=== PATIENT | female | born 1990 | race Caucasian/White ===

== ENCOUNTER 2019-03-17 07:33 | Day surgery (SDC) | payer OTHER ==
--- OUTSIDE RECORDS SUMMARY | 2019-03-17 07:37 | XMS REPORT ---
:1990 Author Organization [employer] Care Team Providers Name Role Phone Laly Lou Provider Role Unavailable Allergies, Adverse Reactions, Alerts Substance Reaction Event Type N.K.D.A. Info Not Available Non Drug Allergy Problems Problem Type Condition Code Onset Dates Condition Status Problem Encounter for general adult medical Z00.01 Active examination with abnormal findings Problem Pilonidal cyst L05.91 Active Assessment Encounter for general adult medical Z00.01 Active examination with abnormal findings Assessment Pilonidal cyst L05.91 Active Medications No Known Medications Results No Known Results Summary Purpose [employer] Submission
[2019-03-17] MEDS ORDERED: Ringers Lactate 1,000 ML IV ONE (07:57)
[2019-03-17] MEDS ORDERED: MIDAZOLAM HCL 2 MG/2 ML INJ ONE (08:16)
[2019-03-17] MEDS ORDERED: LIDOCAINE 2% MPF 5 ML VIAL ONE (08:16)
[2019-03-17] MEDS ORDERED: propofoL 200 MG/20 ML VIAL IV ONE (08:16)
[2019-03-17] MEDS ORDERED: FENTANYL CITR 100 MCG/2 ML ONE (08:16)
[2019-03-17] MEDS ORDERED: CEFAZOLIN/SWI 1gm 1 GM/10 ML SYR ONE (08:18)
[2019-03-17] MEDS ORDERED: ONDANSETRON 4 MG/2 ML VIAL ONE (08:18)
[2019-03-17] MEDS ORDERED: METHYLENE BLUE 0.5% 10 ML AMP ONE (08:20)
[2019-03-17] MEDS ORDERED: BUPIVACA 0.5%/EPI 0.0005%/PF 30 ML VIAL ONE (08:20)
[2019-03-17] MEDS ORDERED: NS 0.9% VIAL 10 ML ONE (08:49)
--- NOTE | 2019-03-17 09:03 | P.OP ---
Preoperative diagnosis: Recurrent Pilonidal Cyst Postoperative diagnosis: Recurrent Pilonidal Cyst Primary procedure: Wide Local Excisional Debridement of Recurrent Pilonidal Cyst Anesthesia: GETA + Local Estimated blood loss: <5cc Specimen: Debridement Tissue Complications: None Implants: Amniofill 1 gram Transferred to: Recovery Room Condition: Good
[2019-03-17 09:19] VITALS: O2SAT 100
[2019-03-17] MEDS ORDERED: ACETAMINOPHEN 500 MG TAB ONE (09:52)
[2019-03-17 10:17] VITALS: BP 130/81; TEMP 96.9
--- NOTE | 2019-03-17 18:56 | OP ---
Date of Procedure: 03/17/2019 Surgeon: Andre Potter MD, Preoperative Diagnosis: Recurrent pilonidal cyst. Postoperative Diagnosis: Recurrent pilonidal cyst. Procedure Performed: Excisional debridement of recurrent pilonidal cyst. Application of placental graft tissue. Anesthesia: General endotracheal plus local with 0.5% Marcaine with epinephrine. Estimated Blood Loss: 5 mL. Specimen: Debridement tissue. Complications: None. Implants: AmnioFill 1 g by [employer]. Disposition: Transferred to recovery room in good condition. Procedure In Detail: After informed consent obtained, patient was brought to the operating room, prepped and draped in sterile fashion. After adequate anesthesia was achieved, I anesthetized the area around the pilonidal cyst near the superior aspect of the colton cleft. I appropriately anesthetized the area and made an elliptical incision for approximately 3 cm x 2 cm by a depth of approximately 1 cm using a 15 blade. I used electrocautery to dissect down circumferentially and removed the pilonidal cyst and the fluid. There was no evidence of infection at this time. I removed the debridement tissue and sent off for pathologic examination. I then copiously irrigated the area and achieved hemostasis easily with electrocautery and hydrated and appropriately prepared the AmnioFill packed into the wound. After appropriately irrigating and drying, I then closed the wound using interrupted 2-0 vertical mattress sutures with good approximation tissues. A sterile dressing was placed over top. The patient tolerated procedure without evidence of complication. The depth was to the fascia over this sacrum. The patient tolerated the procedure well without complication, transferred to the PACU in good condition. All counts were correct at the end of the case. CODY/MILES Voice ID: [id number] Report ID: [id number] MTDD
== END 2019-03-17 10:51 | disposition home or self-care (01) ==
LOC: OR 07:33
PROVIDERS: ATTEND Surgery
PROC: 0JB90ZZ Excision of Buttock Subcutaneous Tissue and Fascia, Open Approach (ICD-10-PCS; principal; 2019-03-17 08:30)
DX: L05.01 Pilonidal cyst with abscess (principal)
CPT/HCPCS: 81025; 88304; 11770; J2704; J2250; J3010; J0690; J7120; J2405